=== PATIENT | male | born 1950 | race American Indian/Alaskan Native ===

== ENCOUNTER → 2018-11-01 | Day surgery (SDC) | payer MEDICARE, OTHER ==
[2018-10-29 16:14] LABS: BASOPHILS # (AUTO) 0.1 (0.0-0.1); BASOPHILS % 1.2 % (0.0-1.0); EOSINOPHILS # (AUTO) 0.3 (0.0-0.4); EOSINOPHILS % 5.9 % (0.0-6.0); HEMATOCRIT 41.9 % (38.2-49.6); HEMOGLOBIN 14.1 g/dL (14.0-18.0); LYMPHOCYTES # (AUTO) 1.2 (1.0-3.2); LYMPHOCYTES % 28.4 % (18.0-39.1); MEAN CORPUSCULAR HEMOGLOBIN 29.3 pg (28-32); MEAN CORPUSCULAR HGB CONC 33.7 g/dL (31-35); MEAN CORPUSCULAR VOLUME 87.1 fL (81-99); MONOCYTES # (AUTO) 0.4 (0.2-0.8); MONOCYTES % 9.6 % (4.4-11.3); NEUTROPHILS # (AUTO) 2.3 (2.1-6.9); NEUTROPHILS % 54.4 % (38.7-80.0); PLATELET COUNT 164 x10e3/uL (140-360); RED BLOOD COUNT 4.81 x10e6/uL (4.3-5.7); RED CELL DISTRIBUTION WIDTH 12.5 % (11.7-14.4)
[~2018-11-01] MED LIST: AMLODIPINE BESY10 MG PO; APRISO0.375 GM PO; CO Q-1010 MG PO; FISH OIL 1,0001 EAC2 PO; GLIMEPIRIDE2 MG PO; LIDOCAINE HCL 2% LOCAL INJ 5 ML SDV VIAL INJ ONE; METOPROLOL SUCC50 MG PO; OMEGA-31000 MG PO; PROPOFOL IV EMULSION 10 MG/ML 50 ML VIAL ONE; VITAMIN C1500 MG PO; VITAMIN D400 UNIT PO; VITAMIN E400 UNI1 PO
--- OUTSIDE RECORDS SUMMARY | 2018-11-01 10:43 | XMS REPORT | CCD ---
Author Author Auto Generated Organization [facility] Address Unknown Phone Unavailable Care Team Providers Care Law Tutor Name Role Phone J Luis Adrian RP Allergies, Adverse Reactions, Alerts Substance Reaction Status NKDA Active Results BEDSIDE GLUCOSE TESTING Most recent to oldest [Reference Range]: 1 Gluc POC Lifscn [70-99 mg/dL] 162 mg/dL 1 *HI* (01/24/2013 08:49:00) Comment1 Notify RN/MD *NA* (01/24/2013 08:49:00) 1Interpretive Data: Upper Reportable Limit: 200 mg/dL.
--- OUTSIDE RECORDS SUMMARY | 2018-11-01 10:43 | XMS REPORT | Summary of Care ---
Author Author Nancy Sommers R.N. Organization Unknown Address Unknown Phone Unavailable Care Team Providers Care Food Checkers And Cashiers Supervisor Name Role Phone YARI CURIEL M.D. Unavailable Unavailable Nancy Sommers R.N. Unavailable Unavailable Unavailable Unavailable Functional Status Name Dates Details Functional status health issues are not documented Status: Name Dates Details Cognitive status health issues are not documented Status: Problems Name Dates Details Atherosclerosis of [place] coronary artery without angina pectoris (414.01, I25.10) Status: Active Acid reflux (530.81, K21.9) Status: Active Chest pain at rest (786.50, R07.9) Status: Active Diabetes mellitus (250.00, E11.9) Status: Active S/P CABG (coronary artery bypass graft) (V45.81, Z95.1) Status: Active Venous insufficiency (chronic) (peripheral) (459.81, I87.2) Status: Active Medications Name Dates Details Aspirin 325 MG Oral Tablet TAKE 1 TABLET DAILY Quantity: 90 LOGHIN M.D., YARI Active Glimepiride 2 MG Oral Tablet TAKE 1 TABLET DAILY * Quantity: 90 Refills: 3 LOGHIN M.D., YARI Active Sildenafil Citrate 100 MG Oral Tablet TAKE 1 TABLET DAILY PRN * Quantity: 15 Refills: 1 LOGHIN M.D., YARI Active Atorvastatin Calcium 40 MG Oral Tablet TAKE 1 TABLET BEDTIME * Quantity: 90 Refills: 3 LOGHIN M.D., YARI * Start : 25-Apr-2014 Active Metoprolol Tartrate 50 MG Oral Tablet TAKE 1 TABLET DAILY * Quantity: 90 Refills: 3 LOGHIN M.D., YARI Active AmLODIPine Besylate 10 MG Oral Tablet TAKE ONE TABLET BY MOUTH ONCE DAILY (NEEDS APPOINTMENT FOR FURTHER REFILLS) * Quantity: 90 Refills: 3 LOGHIN M.D., YARI Active Allergies and Adverse Reactions Name Dates Details No Known Drug Allergies (Allergy) Status: Active Procedures Procedure Dates Details Procedures not documented Immunization Name Dates Details Immunizations not documented Social History Name Dates Details - Status: Name Dates Details Former smoker Vital Signs Date Test Result Details [id number] BP Systolic 144 mm[Hg] Status: Comments: Location: E; Position: Sitting BP Diastolic 72 mm[Hg] Status: Comments: Location: RUE; Position: Sitting Height 72 in Status: Weight 205.8 lb Status: Body Mass Index Calculated 27.91 kg/m2 Status: Body Surface Area Calculated 2.16 m2 Status: Heart Rate 47 /min Status: Respiration Rate 16 /min Status: Comments: Quality: Normal Results Date Description Value Details Results not documented Plan of Care Name Dates Details Planned Observations Planned Goals not documented Planned Encounters Appointment; YARI CURIEL M.D. On: 31-Aug-2018 10:00 Interventions Provided Discussion/Summary* Guideline Used: * Other: * to speak with staff member * Recommended Disposition: call back if no response after 24-48 hours from staff * Discuss w/PCP & Nurse Call Back * Reason for Disposition: to receive document. * Intended Caller Action: * Other: * tasked to jan at 1158.Dr. Arevalo office requesting cardio clearance form for patient. Instructions Name Dates Details Instructions not documented Encounters Appointment; YARI CURIEL M.D. Encounter Diagnosis: Problem not documented On: 08-Apr-2016 12:00 Appointment; YARI CURIEL M.D. Encounter Diagnosis: Problem not documented On: 07-Oct-2016 10:00 Appointment; YARI CURIEL M.D. Encounter Diagnosis: Problem not documented On: 02-Mar-2018 12:40
--- OUTSIDE RECORDS SUMMARY | 2018-11-01 10:43 | XMS REPORT | CCD ---
Author Author Auto Generated Organization [facility] Address Unknown Phone Unavailable Care Team Providers Care Utilization Management Rn Name Role Phone LogJurgen gupta RP J Luis Adrian CP Allergies, Adverse Reactions, Alerts Substance Reaction Status NKDA Active Medications Medication Instructions Start Date End Date Status Fish Oil Substitution Allowed 01/11/2013 Ordered omeprazole Substitution Allowed 01/11/2013 Ordered lisinopril Substitution Allowed 01/11/2013 Ordered metoprolol 100 mg Substitution Allowed 01/11/2013 Ordered oral tablet, extended release Vital Signs Most recent to oldest [Reference Range]: 1 Height 182.88 cm (01/11/2013 10:53:00) Systolic Blood Pressure [90-140 mmHg] 138 mmHg (01/11/2013 10:53:00) Diastolic Blood Pressure [60-90 mmHg] 86 mmHg (01/11/2013 10:53:00) Peripheral Pulse Rate [60-100 bpm] 57 bpm *LOW* (01/11/2013 10:53:00) Weight 97.386 kg (01/11/2013 10:53:00)
--- OUTSIDE RECORDS SUMMARY | 2018-11-01 10:43 | XMS REPORT | Continuity of Care Document ---
Author Author [facility] Address Unknown Phone Unavailable Problems Problem Status Onset Date Classification Date Reported Comments Source BDDC/ PROCTITIS, ESOPHAGEAL REFLUX Active 01/11/2013 [facility] CHEST PAIN OR DISCOMFORT//ESOPHAGEAL REF Active 12/24/2012 [facility] Medications Medication Details Route Status Patient Instructions Ordering Provider Order Date Source Fish Oil Substitution Allowed Active [place] 01/11/2013 [facility] omeprazole Substitution Allowed Active [place] 01/11/2013 [facility] lisinopril Substitution Allowed Active [place] 01/11/2013 [facility] metoprolol 100 mg oral tablet, extended release Substitution Allowed Active [place] 01/11/2013 [facility] Allergies, Adverse Reactions, Alerts Substance Category Reaction Severity Reaction type Status Date Reported Comments Source Immunizations Immunization Date Given Site Status Last Updated Comments Source Results Order Name Results Value Reference Range Date Interpretation Comments Source BEDSIDE GLUCOSE TESTING Comment1 Notify RN/MD 01/24/2013 NA [facility] BEDSIDE GLUCOSE TESTING Gluc POC Lifscn 162 mg/dL 70 - 99 01/24/2013 [place] 1Interpretive Data: Upper Reportable Limit: 200 mg/dL. [facility] Vital Signs Vital Sign Value Date Comments Source Systolic (mm Hg) 138 01/11/2013 [facility] Diastolic (mm Hg) 86 01/11/2013 [facility] Heart Rate 57 01/11/2013 [facility] Weight 97.386 01/11/2013 [facility] Height 182.88 cm 01/11/2013 [facility] Encounters Location Location Details Encounter Type Encounter Number Reason For Visit Attending Provider ADM Date DC Date Status Source [facility] Outpatient [id number] CHEST PAIN OR DISCOMFORT//ESOPHAGEAL REFLUX ANCELMO PASCUAL 01/11/2013 Active [facility] NAN [id number] ANCELMO PASCUAL 01/24/2013 01/24/2013 Active [facility] Procedures Procedure Code Date Perfomer Comments Source
[2018-11-01 13:35] VITALS: BP 128/87
== END | disposition home or self-care (01) ==
LOC: OR 10:35
PROVIDERS: ATTEND Internal Medicine
DX: K51.50 Left sided colitis without complications (principal); K63.5 Polyp of colon; K64.0 First degree hemorrhoids; K62.89 Other specified diseases of anus and rectum; E11.9 Type 2 diabetes mellitus without complications; I10 Essential (primary) hypertension; E78.5 Hyperlipidemia, unspecified; I25.2 Old myocardial infarction; I25.810 Atherosclerosis of coronary artery bypass graft(s) without angina pectoris; R00.1 Bradycardia, unspecified; I44.0 Atrioventricular block, first degree; Z01.810 Encounter for preprocedural cardiovascular examination; Z01.812 Encounter for preprocedural laboratory examination; Z79.84 Long term (current) use of oral hypoglycemic drugs; Z95.1 Presence of aortocoronary bypass graft; Z95.5 Presence of coronary angioplasty implant and graft
CPT/HCPCS: 36415 ×2; 45380; 82948; 85025; 93005; J2001; J2704; 45384

== ENCOUNTER → 2019-08-26 | Day surgery (SDC) | payer MEDICARE ==
[2019-08-21 11:54] LABS: BASOPHILS # (AUTO) 0.1 (0.0-0.1); BASOPHILS % 1.1 % (0.0-1.0); EOSINOPHILS # (AUTO) 0.2 (0.0-0.4); EOSINOPHILS % 3.6 % (0.0-6.0); HEMATOCRIT 37.2 % (38.2-49.6); LYMPHOCYTES # (AUTO) 1.4 (1.0-3.2); LYMPHOCYTES % 30.1 % (18.0-39.1); MEAN CORPUSCULAR HEMOGLOBIN 27.1 pg (28-32); MEAN CORPUSCULAR HGB CONC 32.3 g/dL (31-35); MEAN CORPUSCULAR VOLUME 84.2 fL (81-99); MONOCYTES # (AUTO) 0.4 (0.2-0.8); MONOCYTES % 9.4 % (4.4-11.3); NEUTROPHILS # (AUTO) 2.6 (2.1-6.9); NEUTROPHILS % 55.6 % (38.7-80.0); PLATELET COUNT 273 x10e3/uL (140-360); RED BLOOD COUNT 4.42 x10e6/uL (4.3-5.7); RED CELL DISTRIBUTION WIDTH 13.9 % (11.7-14.4)
[~2019-08-26] MED LIST changes: -APRISO0.375 GM PO; +APRISO0.375 GM PR; +FENTANYL CITRATE/PF 100MCG/2 ML INJ ONE; +FLOMAX0.4 MG PO; +IRON PO; -LIDOCAINE HCL 2% LOCAL INJ 5 ML SDV VIAL INJ ONE; +LISINOPRIL-HCT1 EAC1 PO; +MIDAZOLAM HCL 2 MG/2 ML VIAL ONE; +PROBIOTIC PO
[2019-08-26 09:15] VITALS: BP 124/84
[2019-08-26 09:38] LABS: % IRON SATURATION 19 % (15-50); IRON 61 ug/dL (65-175); TOTAL IRON BINDING CAPACITY 326 ug/dL (261-478); TRANSFERRIN 233 mg/dL (174-364)
--- NOTE | 2019-08-26 16:11 | Operative Report ---
DATE OF PROCEDURE: 08/26/2019 SURGEON: Zain Holder MD PROCEDURE: Esophagogastroduodenoscopy with biopsies. INDICATIONS FOR ESOPHAGOGASTRODUODENOSCOPY: Anemia, history of dark stools. MEDICATIONS: The patient was done under MAC, please see anesthesiologist's note. PROCEDURE IN DETAIL: With the patient in left lateral decubitus position, flexible fiberoptic Olympus gastroscope was introduced into the esophagus under direct visualization without any difficulty. There was some patchy erythema noted in distal esophagus. Some focal nodularity was noted at the GE junction was biopsied. The scope was then advanced with ease into the stomach. Mucosa overlying the antrum and the body revealed some patchy erythema and low-grade edema and biopsies were obtained, sent to stain for H pylori. The pylorus was of normal contour and shape, was intubated with ease and the scope was advanced all the way to the second portion of the duodenum. Biopsies were obtained from the proximal second portion and duodenal bulb to rule out sprue. The scope was then withdrawn back into the stomach and retroflexed mucosa overlying the fundus and the cardia appeared to be within normal limits. The scope was then straightened out. It was subsequently withdrawn. The patient tolerated the procedure well. IMPRESSION: 1. Distal esophagitis, mild. 2. Focal nodularity, gastroesophageal junction, biopsied. 3. Gastritis, biopsied. Biopsies sent to stain for H pylori. 4. Rule out sprue. PLAN: Follow up histology. Initiate Protonix 40 mg one p.o. q.a.m. a.c. Zain Holder MD [facility] /[id number] cc: Khoi Browne MD
== END | disposition home or self-care (01) ==
LOC: OR 06:55
PROVIDERS: ATTEND Internal Medicine Gastroenterology
DX: D64.89 Other specified anemias (principal); K29.50 Unspecified chronic gastritis without bleeding; K20.9 Esophagitis, unspecified; K22.8 Other specified diseases of esophagus; K21.9 Gastro-esophageal reflux disease without esophagitis; K51.811 Other ulcerative colitis with rectal bleeding; E11.9 Type 2 diabetes mellitus without complications; I10 Essential (primary) hypertension; I25.10 Atherosclerotic heart disease of native coronary artery without angina pectoris; I49.3 Ventricular premature depolarization; Z01.812 Encounter for preprocedural laboratory examination; Z79.84 Long term (current) use of oral hypoglycemic drugs; Z95.5 Presence of coronary angioplasty implant and graft
CPT/HCPCS: 36415 ×2; 43239; 82948; 83540; 84466; 85025; 85045; J2250; J2704; J3010

== ENCOUNTER → 2020-03-25 | Day surgery (SDC) | payer MEDICARE, OTHER ==
[2020-03-20 10:28] LABS: BASOPHILS % 0.6 % (0.0-1.0); EOSINOPHILS # (AUTO) 0.2 (0.0-0.4); EOSINOPHILS % 4.9 % (0.0-6.0); HEMATOCRIT 41.8 % (38.2-49.6); HEMOGLOBIN 13.5 g/dL (14.0-18.0); LYMPHOCYTES # (AUTO) 1.5 (1.0-3.2); LYMPHOCYTES % 31.2 % (18.0-39.1); MEAN CORPUSCULAR HEMOGLOBIN 28.5 pg (28-32); MEAN CORPUSCULAR HGB CONC 32.3 g/dL (31-35); MEAN CORPUSCULAR VOLUME 88.4 fL (81-99); MONOCYTES # (AUTO) 0.3 (0.2-0.8); MONOCYTES % 7.3 % (4.4-11.3); NEUTROPHILS # (AUTO) 2.6 (2.1-6.9); NEUTROPHILS % 55.8 % (38.7-80.0); PLATELET COUNT 155 x10e3/uL (140-360); RED BLOOD COUNT 4.73 x10e6/uL (4.3-5.7); RED CELL DISTRIBUTION WIDTH 13.3 % (11.7-14.4)
[~2020-03-25] MED LIST changes: +APRISO0.375 GM PO; -APRISO0.375 GM PR; -FENTANYL CITRATE/PF 100MCG/2 ML INJ ONE; +GLUCAGON FOR INJ 1 MG VIAL ONE; +HYOSCYAMINE 0.125 MG TAB ONE; +LIDOCAINE HCL 2% LOCAL INJ 5 ML SDV VIAL INJ ONE; +MESALAMINE4 GM/60 ML PR; +METFORMIN HCL500 MG PO; -MIDAZOLAM HCL 2 MG/2 ML VIAL ONE; +NAPROXEN250 MG PO; +PROPOFOL IV EMULSION 10 MG/ML 20 ML VIAL ONE; -PROPOFOL IV EMULSION 10 MG/ML 50 ML VIAL ONE
[2020-03-25 15:15] VITALS: BP 147/83
== END | disposition home or self-care (01) ==
LOC: OR 11:26
PROVIDERS: ATTEND Internal Medicine Gastroenterology
DX: K51.90 Ulcerative colitis, unspecified, without complications (principal); K63.5 Polyp of colon; K64.8 Other hemorrhoids; E11.9 Type 2 diabetes mellitus without complications; I25.810 Atherosclerosis of coronary artery bypass graft(s) without angina pectoris; I10 Essential (primary) hypertension; I25.2 Old myocardial infarction; Z01.810 Encounter for preprocedural cardiovascular examination; Z01.812 Encounter for preprocedural laboratory examination; Z11.59 Encounter for screening for other viral diseases; Z79.84 Long term (current) use of oral hypoglycemic drugs; Z95.1 Presence of aortocoronary bypass graft
CPT/HCPCS: 36415 ×2; 45380; 82948; 85025; 93005; J1610; J2001; J2704; U0002; 45378

== ENCOUNTER → 2024-06-13 | Day surgery (SDC) | payer MEDICARE ==
[2024-06-12 10:49] LABS: BASOPHILS # (AUTO) 0.1 (0.0-0.1); BASOPHILS % 1.1 % (0.0-1.0); EOSINOPHILS # (AUTO) 0.2 (0.0-0.4); EOSINOPHILS % 3.3 % (0.0-6.0); HEMATOCRIT 43.4 % (38.2-49.6); HEMOGLOBIN 13.6 g/dL (14.0-18.0); LYMPHOCYTES # (AUTO) 1.3 (1.0-3.2); LYMPHOCYTES % 27.9 % (18.0-39.1); MEAN CORPUSCULAR HEMOGLOBIN 29.4 pg (28-32); MEAN CORPUSCULAR HGB CONC 31.3 g/dL (31-35); MEAN CORPUSCULAR VOLUME 93.9 fL (81-99); MONOCYTES # (AUTO) 0.4 (0.2-0.8); MONOCYTES % 9.7 % (4.4-11.3); NEUTROPHILS # (AUTO) 2.6 (2.1-6.9); NEUTROPHILS % 57.8 % (38.7-80.0); PLATELET COUNT 150 x10e3/uL (140-360); RED BLOOD COUNT 4.62 x10e6/uL (4.3-5.7); RED CELL DISTRIBUTION WIDTH 13.1 % (11.7-14.4); WHITE BLOOD COUNT 4.52 x10e3/uL (4.8-10.8)
[~2024-06-13] MED LIST changes: +CINNAMON500 MG PO; +COD LIVER OIL1 EAC2 PO; +EPHEDRINE SULFATE INJ 50 MG/ML VIAL ONE; -HYOSCYAMINE 0.125 MG TAB ONE; +LIALDA1.2 GM PO; +METOPROLOL SUCC25 MG PO; +PROPOFOL IV EMULSION 50 ML IV ONE
[2024-06-13] MEDS: LACTATED RINGER'S 1,000 ML ONE (06:56)
[2024-06-13 08:54] VITALS: TEMP 97.9
[2024-06-13 09:25] VITALS: BP 157/87; PULSE 64; RESP 16; O2SAT 99
[2024-06-13 10:03] LABS: ALBUMIN 3.7 g/dL (3.5-5.0); ALBUMIN/GLOBULIN RATIO 1.4 (0.8-2.0); ANION GAP 11.5 mmol/L (8-16); BILIRUBIN,TOTAL 0.9 mg/dL (0.2-1.2); CALCIUM 9.3 mg/dL (8.4-10.2); POTASSIUM 4.5 mmol/L (3.5-5.1); TOTAL PROTEIN 6.3 g/dL (6.5-8.1)
[2024-06-13 13:46] LABS: CDIFF AG QUIK CHEK NEGATIVE (NEGATIVE); CDIFF TOX QUIK CHEK NEGATIVE (NEGATIVE)
== END | disposition home or self-care (01) ==
LOC: OR 06:03
PROVIDERS: ATTEND Internal Medicine Gastroenterology
DX: K52.9 Noninfective gastroenteritis and colitis, unspecified (principal); K63.5 Polyp of colon; K62.89 Other specified diseases of anus and rectum; K64.8 Other hemorrhoids; I25.810 Atherosclerosis of coronary artery bypass graft(s) without angina pectoris; I10 Essential (primary) hypertension; E78.5 Hyperlipidemia, unspecified; I25.2 Old myocardial infarction; E11.9 Type 2 diabetes mellitus without complications; D68.9 Coagulation defect, unspecified; N40.0 Benign prostatic hyperplasia without lower urinary tract symptoms; Z79.84 Long term (current) use of oral hypoglycemic drugs; Z79.1 Long term (current) use of non-steroidal anti-inflammatories (NSAID); Z79.899 Other long term (current) drug therapy; Z95.1 Presence of aortocoronary bypass graft; Z95.5 Presence of coronary angioplasty implant and graft
CPT/HCPCS: 36415 ×2; 45380; 45385; 80053; 83630; 85025; 86140; 87045; 87177; 87324; 87328; 87449; 93005; J1610; J2003; J2704; J7121; 45378; 83993